=== PATIENT | male | born 1980 | race Caucasian/White ===

== ENCOUNTER 2017-12-26 14:19 | Emergency (ER) | payer OTHER ==
[2017-12-26] MEDS ORDERED: HYDROmorphONE/DILAUDID 1 MG/ML INJ ONE ×2 (14:23→14:27)
[2017-12-26] MEDS ORDERED: LORazepam 2 MG/ML INJ ONE (14:24)
[2017-12-26] MEDS ORDERED: LORazepam 2 MG/ML INJ IVP ONE (14:28)
[2017-12-26] MEDS ORDERED: HYDROmorphONE/DILAUDID 2 MG/ML INJ IVP ONE ×2 (14:29→14:30)
--- NOTE | 2017-12-26 14:35 | EDPHY ---
H & P Time Seen by Provider: 12/26/17 14:20 HPI/ROS: CHIEF COMPLAINT: "I dislocated my shoulder" HISTORY OF PRESENT ILLNESS: 37-year-old male history of left shoulder dislocation times 20, was at work today putting a been over head when he fell tissue shoulder dislocate. He was unable to reduce himself. No direct trauma or fall. No paresthesia. PHYSICAL EXAM (Prior to examination, patient consented to physical exam, hands were washed and my usual and customary physical exam procedures followed) 1) GENERAL: Well-developed, well-nourished, alert and oriented. Appears uncomfortable. 2) HEAD: Normocephalic 3) HEENT: sclera anicteric 4) LUNGS: Breathing comfortably. 5) SKIN: Intact 6) MUSCULOSKELETAL: Anterior fullness and lateral step-off consistent with anterior dislocation. Intact skin. No tenting. 7) NEUROLOGIC: Bilateral deltoid sensation intact. Radial ulnar median nerve function intact distally. Brisk pulses and capillary refill. Constitutional: Initial Vital Signs Temperature (C) 36.7 C 12/26/17 14:05 Heart Rate 68 12/26/17 14:05 Respiratory Rate 16 12/26/17 14:05 Blood Pressure 141/100 H 12/26/17 14:05 O2 Sat (%) 100 12/26/17 14:05 O2 Delivery Mode Room Air O2 (L/minute) 2 Allergies/Adverse Reactions: No Known Allergies Allergy (Unverified 12/26/17 14:21) Home Medications: Medication Instructions Recorded Hydrocodone/APAP 5/325 [[place] 1 tab PO Q6 PRN #7 tab 12/26/17 5/325 (RX)] Medical Decision Making - Diagnostics Imaging Results: Imaging Impressions Shoulder X-Ray 12/26/17 14:31 Impression: Normal. Images reviewed myself Procedures: Procedure: Dislocation reduction. The dislocation of the left shoulder was reduced using traction counter traction technique without complications. Post reduction the patient's neurovascular exam is normal. Post reduction x-ray demonstrates reduction of the joint to the anatomic position. The procedure was performed by myself. Procedure: Splint A sling splint was applied by ER astro technician. After application of the splint I returned and re-examined the patient. The splint was adequately immobilizing the joint and distal to the splint the patient's circulation and sensation were intact. Patient shows no signs of compartment syndrome. Was given orthopedic precautions. ED Course/Re-evaluation: No pre reduction x-ray performed as the patient had no direct trauma history, describes a history consistent with anterior dislocation on clinical exam findings consistent with such. He was reduced primarily in the ER, placed in a sling, this is a work comp related injury he will need follow up with work comp provider. Usual and customary orthopedic precautions and instructions provided. I saw this patient independently based on established practice protocols. Care of patient under supervision of secondary supervising physician Dr Moore . - Data Points Medications Given: Discontinued Medications Hydromorphone HCl (Dilaudid) 1 mg IVP EDNOW ONE Stop: 12/26/17 14:30 Last Admin: 12/26/17 14:31 Dose: Not Given Hydromorphone HCl (Dilaudid) 1 mg IVP EDNOW ONE Stop: 12/26/17 14:31 Last Admin: 12/26/17 14:33 Dose: 1 mg Lorazepam (Ativan Injection) 1 mg IVP EDNOW ONE Stop: 12/26/17 14:29 Last Admin: 12/26/17 14:32 Dose: 1 mg Departure - Departure Disposition: Home, Routine, Self-Care Clinical Impression: Recurrent dislocation, left shoulder Condition: Good Instructions: Shoulder Dislocation (ED) Additional Instructions: Return to the ER immediately if you experience discoloration, have worsening pain, numbness, tingling, or any other symptoms that concern you. If you received x-rays in the emergency department today, be advised, that ligamentous , tendon, muscular, and other non-bony injury cannot be fully ruled out. Try to keep your affected extremity elevated above the level of your chest, and keep cold packs on the affected area, for the next 48 hours. Avoid overhead activities Referrals: Tony Lisa MD [Medical Doctor] - 2-3 days, call for appt. Stand Alone Forms: Work Comp Follow Up Prescriptions: Hydrocodone/APAP 5/325 [[place] 5/325 (RX)] 1 tab PO Q6 PRN #7 tab PRN Reason: Pain, Severe
[2017-12-26 15:49] VITALS: BP 136/89
== END 2017-12-26 15:48 | disposition home or self-care (01) ==
PROC: 0RSKXZZ Reposition Left Shoulder Joint, External Approach (ICD-10-PCS; principal; 2017-12-26)
DX: M24.412 Recurrent dislocation, left shoulder (principal); X50.9XXA Other and unspecified overexertion or strenuous movements or postures, initial encounter; Y99.0 Civilian activity done for income or pay
CPT/HCPCS: 96374; A4565; J1170; J2060